=== PATIENT | male | born 1965 | race African-American/Black ===

== ENCOUNTER 2021-07-14 03:24 | Observation (INO) | payer OTHER ==
[2021-07-14 04:04] LABS: Basophils # (A) 0.1 k/uL (0-0.2); Basophils % (A) 1 %; Eosinophils # (A) 0.1 k/uL (0-0.7); Eosinophils % (A) 2 %; HCT 51.3 % (39.0-53.0); HGB 16.3 gm/dL (13.0-17.5); Lymphocytes # (A) 2.1 k/uL (1.0-4.8); Lymphocytes % (A) 38 %; MCH 27.5 pg (25.0-35.0); MCHC 31.8 g/dL (31.0-37.0); MCV 86.5 fL (80.0-100.0); Mean Platelet Volume 8.6; Monocytes # (A) 0.3 k/uL (0-1.0); Monocytes % (A) 5 %; Neutrophils % (A) 54 %; Platelet Count 206 k/uL (150-450); RBC 5.93 m/uL (4.30-5.90); WBC 5.5 k/uL (3.8-10.6)
[2021-07-14 04:19] LABS: Calcium 8.9 mg/dL (8.4-10.2); Total Bilirubin 0.7 mg/dL (0.2-1.3)
[2021-07-14 04:29] LABS: Creatine Kinase MB 0.7 ng/mL (0.0-2.4)
[2021-07-14 04:32] LABS: Partial Thromboplastin Time 25.3 sec (22.0-30.0); Prothrombin Time 10.7 sec (9.0-12.0)
[2021-07-14 04:38] LABS: Magnesium 2.2 mg/dL (1.6-2.3); Troponin I 0.017 ng/mL (0.000-0.034)
[2021-07-14 04:39] LABS: Albumin 3.8 g/dL (3.5-5.0); Total Protein 6.2 g/dL (6.3-8.2)
[2021-07-14] MEDS ORDERED: SODIUM CHLORIDE 0.9% 500 ML 500 ML IV ONE (06:47)
[2021-07-14] MEDS ORDERED: PANTOPRAZOLE 40 MG/10 ML VIAL IVP STA (06:47)
--- NOTE | 2021-07-14 06:52 | ED ---
General Adult HPI - General Chief complaint: Chest Pain Stated complaint: Chest Pain Time Seen by Provider: 07/14/21 06:45 Source: patient, EMS, RN notes reviewed, old records reviewed Mode of arrival: EMS Limitations: no limitations - History of Present Illness Initial comments: This is a 56-year-old well-appearing male that presents with complaints of chest pain which resolved prior to arrival after aspirin was given by [facility] staff. Patient now complaining of epigastric pain and chronic low back pain. Patient states the epigastric pain feels similar to when he had a bleeding ulcer 30 years ago. Patient is a daily smoker with a history of crack cocaine use. Last used Sunday. -: days(s) (1) Location: chest, back, abdomen Severity scale (1-10): 8 Quality: constant Consistency: constant Associated Symptoms: chest pain, other (back pain, epigastric pain) - Related Data Home Medications Medication Instructions Recorded Confirmed Acetaminophen Tab [Tylenol] 650 mg PO TID 07/14/21 07/14/21 Aspirin EC [Ecotrin] 325 mg PO DAILY 07/14/21 07/14/21 Calc/Magnes/Zinc/Vitamin D 1 tab PO TID 07/14/21 07/14/21 Chlorpheniramine Maleate 4 mg PO Q4H PRN 07/14/21 07/14/21 [Chlor-Trimeton] Loperamide HCl [Imodium A-D] 2 mg PO DIRECTED PRN 07/14/21 07/14/21 Mag Hydrox/Aluminum Hyd/Simeth 30 ml PO Q4H PRN 07/14/21 07/14/21 [Mylanta Maximum Strength Liq] Multivitamins, Thera [Multivitamin 1 tab PO DAILY PRN 07/14/21 07/14/21 (formulary)] Thiamine [Vitamin B-1] 100 mg PO DAILY PRN 07/14/21 07/14/21 guaiFENesin [guaiFENesin Oral 10 mg PO Q4H 07/14/21 07/14/21 Solution] ondansetron HCL [Zofran] 8 mg PO Q6HR PRN 07/14/21 07/14/21 traZODone HCL [Desyrel] 50 - 150 mg PO HS 07/14/21 07/14/21 Allergies Allergy/AdvReac Type Severity Reaction Status Date / Time ibuprofen [From Motrin] Allergy Abdominal Verified 07/14/21 08:23 Pain Review of Systems ROS Statement: Those systems with pertinent positive or pertinent negative responses have been documented in the HPI. ROS Other: All systems not noted in ROS Statement are negative. Past Medical History Additional Past Medical History / Comment(s): back pain History of Any Multi-Drug Resistant Organisms: None Reported Additional Past Surgical History / Comment(s): "ulcer surgery" Past Psychological History: No Psychological Hx Reported Smoking Status: Current some day smoker Past Alcohol Use History: Occasional Past Drug Use History: Cocaine General Exam Limitations: no limitations General appearance: alert, in no apparent distress Head exam: Present: atraumatic Eye exam: Present: normal appearance. Absent: scleral icterus, conjunctival injection Neck exam: Present: normal inspection, full ROM. Absent: tenderness, me ningismus Respiratory exam: Present: normal lung sounds bilaterally. Absent: respiratory distress, wheezes, rales, rhonchi, stridor, chest wall tenderness, accessory muscle use, decreased breath sounds Cardiovascular Exam: Present: regular rate, normal heart sounds GI/Abdominal exam: Present: soft, tenderness (epigastric), normal bowel sounds. Absent: distended, guarding, rebound, rigid, pulsatile mass Extremities exam: Present: normal inspection, full ROM, normal capillary refill. Absent: tenderness, pedal edema, joint swelling Back exam: Present: normal inspection, full ROM, paraspinal tenderness (lumbar spine) Neurological exam: Present: alert, oriented X3, normal gait Psychiatric exam: Present: normal affect, normal mood Skin exam: Present: warm, dry, intact, normal color. Absent: cyanosis, diaphoretic Course Vital Signs 07/14/21 07/14/21 07/14/21 03:34 07:05 07:44 Temperature 98.7 F Pulse Rate 75 62 Pulse Rate [ 66 Sitting Manager [place]] Respiratory 24 16 Rate Blood Pressure 128/84 122/82 O2 Sat by Pulse 99 99 Oximetry 07/14/21 11:00 Temperature Pulse Rate 63 Pulse Rate [ Sitting Manager [place]] Respiratory 16 Rate Blood Pressure 122/80 O2 Sat by Pulse 96 Oximetry EKG Findings - EKG Results: EKG: sinus rhythm (Ventricular rate of 78, WV interval 0.118, QRS 0.86, QTC 0.388) Medical Decision Making - Medical Decision Making 56-year-old well-appearing male presents with chest pain that resolved prior to arrival after aspirin was given by [facility] staff. Patient is a daily smoker with a history of crack cocaine use, last use Sunday. Chest x-ray shows no acute cardiopulmonary process. There is no evidence of leukocytosis. Hematocrit are stable. Troponin 2 negative at 0.017 and less than 0.012. Patient states that pain was resolved prior to coming to the emergency room. He does have history of gastric ulcers and is complaining of epigastric pain. He will be admitted for atypical chest pain. Case discussed with Dr. Mary. - Lab Data Result diagrams: 07/14/21 03:33 07/14/21 03:33 Lab Results 07/14/21 07/14/21 07/14/21 Range/Units 03:33 03:33 03:33 WBC 5.5 (3.8-10.6) k/uL RBC 5.93 H (4.30-5.90) m/uL Hgb 16.3 (13.0-17.5) gm/dL Hct 51.3 (39.0-53.0) % MCV 86.5 (80.0-100.0) fL MCH 27.5 (25.0-35.0) pg MCHC 31.8 (31.0-37.0) g/dL RDW 13.0 (11.5-15.5) % Plt Count 206 (150-450) k/uL MPV 8.6 Neutrophils % 54 % Lymphocytes % 38 % Monocytes % 5 % Eosinophils % 2 % Basophils % 1 % Neutrophils # 3.0 (1.3-7.7) k/uL Lymphocytes # 2.1 (1.0-4.8) k/uL Monocytes # 0.3 (0-1.0) k/uL Eosinophils # 0.1 (0-0.7) k/uL Basophils # 0.1 (0-0.2) k/uL PT 10.7 (9.0-12.0) sec INR 1.0 (<1.2) APTT 25.3 (22.0-30.0) sec Sodium 136 L (137-145) mmol/L Potassium 5.0 (3.5-5.1) mmol/L Chloride 106 (98-107) mmol/L Carbon Dioxide 23 (22-30) mmol/L Anion Gap 7 mmol/L BUN 14 (9-20) mg/dL Creatinine 1.08 (0.66-1.25) mg/dL Est GFR (CKD-EPI)AfAm 87 (>60 ml/min/1.73 sqM) Est GFR (CKD-EPI)NonAf 75 (>60 ml/min/1.73 sqM) Glucose 84 (74-99) mg/dL Calcium 8.9 (8.4-10.2) mg/dL Magnesium 2.2 (1.6-2.3) mg/dL Total Bilirubin 0.7 (0.2-1.3) mg/dL AST 29 (17-59) U/L ALT 14 (4-49) U/L Alkaline Phosphatase 62 (38-126) U/L Total Creatine Kinase (55-170) U/L CK-MB (CK-2) (0.0-2.4) ng/mL CK-MB (CK-2) Rel Index Troponin I (0.000-0.034) ng/mL Total Protein 6.2 L (6.3-8.2) g/dL Albumin 3.8 (3.5-5.0) g/dL 07/14/21 07/14/21 Range/Units 03:33 06:43 WBC (3.8-10.6) k/uL RBC (4.30-5.90) m/uL Hgb (13.0-17.5) gm/dL Hct (39.0-53.0) % MCV (80.0-100.0) fL MCH (25.0-35.0) pg MCHC (31.0-37.0) g/dL RDW (11.5-15.5) % Plt Count (150-450) k/uL MPV Neutrophils % % Lymphocytes % % Monocytes % % Eosinophils % % Basophils % % Neutrophils # (1.3-7.7) k/uL Lymphocytes # (1.0-4.8) k/uL Monocytes # (0-1.0) k/uL Eosinophils # (0-0.7) k/uL Basophils # (0-0.2) k/uL PT (9.0-12.0) sec INR (<1.2) APTT (22.0-30.0) sec Sodium (137-145) mmol/L Potassium (3.5-5.1) mmol/L Chloride (98-107) mmol/L Carbon Dioxide (22-30) mmol/L Anion Gap mmol/L BUN (9-20) mg/dL Creatinine (0.66-1.25) mg/dL Est GFR (CKD-EPI)AfAm (>60 ml/min/1.73 sqM) Est GFR (CKD-EPI)NonAf (>60 ml/min/1.73 sqM) Glucose (74-99) mg/dL Calcium (8.4-10.2) mg/dL Magnesium (1.6-2.3) mg/dL Total Bilirubin (0.2-1.3) mg/dL AST (17-59) U/L ALT (4-49) U/L Alkaline Phosphatase (38-126) U/L Total Creatine Kinase 84 (55-170) U/L CK-MB (CK-2) 0.7 (0.0-2.4) ng/mL CK-MB (CK-2) Rel Index 0.8 Troponin I 0.017 <0.012 (0.000-0.034) ng/mL Total Protein (6.3-8.2) g/dL Albumin (3.5-5.0) g/dL Disposition Clinical Impression: Atypical chest pain Disposition: ADMITTED IP TO THIS [facility] Decision Date: 07/14/21 Decision Time: 07:55
--- NOTE | 2021-07-14 07:14 | XR ---
EXAMINATION TYPE: XR chest 2V DATE OF EXAM: 07/14/2021 COMPARISON: NONE HISTORY: Pain TECHNIQUE: Frontal and lateral views of the chest are obtained. FINDINGS: There is no focal air space opacity, pleural effusion, or pneumothorax seen. The cardiac silhouette size is within normal limits. There are overlying leads. The osseous structures are intac t. IMPRESSION: No acute cardiopulmonary process.
[2021-07-14] MEDS ORDERED: NALOXONE 0.4 MG/ML 1 ML VIAL IV PRN (07:57)
[2021-07-14] MEDS ORDERED: ACETAMINOPHEN TAB 325 MG TAB PO PRN (07:57)
--- NOTE | 2021-07-14 13:43 | ECHOF ---
Referral Reason:chest pain MEASUREMENTS -------- HEIGHT: 182.9 cm WEIGHT: 76.7 kg BP: RVIDd: 2.8 cm (< 3.3) IVSd: 1.1 cm (0.6 - 1.1) LVIDd: 4.0 cm (3.9 - 5.3) LVPWd: 1.5 cm (0.6 - 1.1) IVSs: 1.2 cm LVIDs: 3.6 cm LVPWs: 1.4 cm LA Diam: 3.4 cm (2.7 - 3.8) LAESV Index (A-L): 34.50 ml/m Ao Diam: 3.3 cm (2.0 - 3.7) AV Cusp: 1.9 cm (1.5 - 2.6) LA Diam: 3.6 cm (2.7 - 3.8) MV EXCURSION: 19.436 mm (> 18.000) MV EF SLOPE: 95 mm/s (70 - 150) EPSS: 0.7 cm MV E Kevin: 0.53 m/s MV DecT: 160 ms MV A Kevin: 0.59 m/s MV E/A Ratio: 0.91 RAP: 5.00 mmHg RVSP: 22.01 mmHg FINDINGS -------- Sinus rhythm. This was a technically adequate study. The left ventricular size is normal. There is mild concentric left ventricular hypertrophy. Overa ll left ventricular systolic function is normal with, an EF between 55 - 60 %. The diastolic fillin g pattern is normal for the age of the patient 7.42. The right ventricle is normal in size. LA is moderately dilated 34-39 ml/m2 The right atrial size is normal. The aortic valve is trileaflet and appears structurally normal. There is mild aortic regurgitation. The mitral valve is normal. Mild mitral regurgitation is present. The tricuspid valve appears structurally normal. Mild tricuspid regurgitation present. Right vent ricular systolic pressure is normal at < 35 mmHg. There is no pulmonic regurgitation present. The aortic root size is normal. There is no pericardial effusion. CONCLUSIONS -------- 1. Overall left ventricular systolic function is normal with, an EF between 55 - 60 %. 2. LA is moderately dilated 34-39 ml/m2 3. There is mild aortic regurgitation. 4. Mild mitral regurgitation is present. 5. Mild tricuspid regurgitation present. 6. There is no pericardial effusion. HYDRAMATIC SPECIALIST: Angela Shelton RDCS
--- NOTE | 2021-07-14 13:48 | P.CRDCN ---
History of Present Illness Consult date: 07/14/21 History of present illness: HISTORY OF PRESENT ILLNESS: This is a 56-year-old male with a past medical history significant for nicotine dependence and crack cocaine use. Patient is currently at [facility] for rehab. Patient does not follow with a vigoureux printer. We have been asked to see the patient in consultation for chest pain. Patient examined at the bedside. Patient states he began having chest pain yesterday when he was sleeping. He also reports having shortness of breath with exertion. He denied any radiation of the pain. He denies having any previous cardiac testing in the past. He does report that his sister from a heart attack. * EKG reveals sinus mechanism with no signs of acute ischemia * Chest xray negative for acute process * Laboratory data: WBC 5.5. Hemoglobin 16.3. Platelet count 206. Sodium 136. Potassium 5.0. B UN 14. Creatinine 1.08. Magnesium 2.2. Troponin negative 2. * Current home cardiac medications include aspirin 325 mg daily REVIEW OF SYSTEMS: At the time of my exam: CONSTITUTIONAL: Denies fever or chills. HEENT: Denies blurred vision, vision changes, or eye pain. Denies hemoptysis CARDIOVASCULAR: Denies chest pain. Denies orthopnea. Denies PND. Denies palpitations RESPIRATORY: Denies shortness of breath. GASTROINTESTINAL: Denies abdominal pain. Denies nausea or vomiting. HEMATOLOGIC: Denies bleeding disorders. GENITOURINARY: Denies any blood in urine. SKIN: Denies pruitis. Denies rash. PHYSICAL EXAM: VITAL SIGNS: Reviewed. GENERAL: Well-developed in no acute distress. HEENT: Head is normocephalic. Pupils are equal, round. Sclerae anicteric. Mucous membranes of the mouth are moist. Neck supple. No JVD or thyromegaly LUNGS: Respirations even and unlabored. Lungs essentially clear to auscultation bilaterally. HEART: Regular rate and rhythm. S1 and S2 heard. ABDOMEN: Soft. Nondistended. Nontender. EXTREMITIES: Normal range of motion. No clubbing or cyanosis. Peripheral pulses intact. No lower extremity edema NEUROLOGIC: Awake and alert. Oriented x 3. ASSESSMENT: Chest pain Nicotine dependence History of crack cocaine use, currently in rehab Family history of premature coronary artery disease History of gastric ulcers PLAN: Acute coronary event has been ruled out Obtain 2D echo to assess cardiac structure and function Nothing by mouth at midnight Patient will undergo stress echocardiogram tomorrow to assess for ischemia Abstinence from drug use current Smoking cessation recommended Further recommendations pending patient's course Nurse practitioner note has been reviewed by physician. Signing provider agrees with the documented findings, assessment, and plan of care. Past Medical History Additional Past Medical History / Comment(s): back pain History of Any Multi-Drug Resistant Organisms: None Reported Additional Past Surgical History / Comment(s): "ulcer surgery" Past Psychological History: No Psychological Hx Reported Smoking Status: Current some day smoker Past Alcohol Use History: Occasional Past Drug Use History: Cocaine Medications and Allergies Home Medications Medication Instructions Recorded Confirmed Type Acetaminophen Tab [Tylenol] 650 mg PO TID 07/14/21 07/14/21 History Aspirin EC [Ecotrin] 325 mg PO DAILY 07/14/21 07/14/21 History Calc/Magnes/Zinc/Vitamin D 1 tab PO TID 07/14/21 07/14/21 History Chlorpheniramine Maleate 4 mg PO Q4H PRN 07/14/21 07/14/21 History [Chlor-Trimeton] Loperamide HCl [Imodium A-D] 2 mg PO DIRECTED PRN 07/14/21 07/14/21 History Mag Hydrox/Aluminum Hyd/Simeth 30 ml PO Q4H PRN 07/14/21 07/14/21 History [Mylanta Maximum Strength Liq] Multivitamins, Thera [Multivitamin 1 tab PO DAILY PRN 07/14/21 07/14/21 History (formulary)] Thiamine [Vitamin B-1] 100 mg PO DAILY PRN 07/14/21 07/14/21 History guaiFENesin [guaiFENesin Oral 10 mg PO Q4H 07/14/21 07/14/21 History Solution] ondansetron HCL [Zofran] 8 mg PO Q6HR PRN 07/14/21 07/14/21 History traZODone HCL [Desyrel] 50 - 150 mg PO HS 07/14/21 07/14/21 History Allergies Allergy/AdvReac Type Severity Reaction Status Date / Time ibuprofen [From Motrin] Allergy Abdominal Verified 07/14/21 08:23 Pain Physical Exam Vitals: Vital Signs Temp Pulse Pulse Resp BP Pulse Ox 07/14/21 07:44 62 16 122/82 99 07/14/21 07:05 66 07/14/21 03:34 98.7 F 75 24 128/84 99 Intake and Output 07/13/21 07/14/21 07/14/21 22:59 06:59 14:59 Other: Weight 85.729 kg Results 07/14/21 03:33 07/14/21 03:33 Cardiac Enzymes 07/14/21 07/14/21 07/14/21 Range/Units 03:33 03:33 06:43 AST 29 (17-59) U/L CK-MB (CK-2) 0.7 (0.0-2.4) ng/mL Troponin I 0.017 <0.012 (0.000-0.034) ng/mL Coagulation 07/14/21 Range/Units 03:33 PT 10.7 (9.0-12.0) sec APTT 25.3 (22.0-30.0) sec CBC 07/14/21 Range/Units 03:33 WBC 5.5 (3.8-10.6) k/uL RBC 5.93 H (4.30-5.90) m/uL Hgb 16.3 (13.0-17.5) gm/dL Hct 51.3 (39.0-53.0) % Plt Count 206 (150-450) k/uL Comprehensive Metabolic Panel 07/14/21 Range/Units 03:33 Sodium 136 L (137-145) mmol/L Potassium 5.0 (3.5-5.1) mmol/L Chloride 106 (98-107) mmol/L Carbon Dioxide 23 (22-30) mmol/L BUN 14 (9-20) mg/dL Creatinine 1.08 (0.66-1.25) mg/dL Glucose 84 (74-99) mg/dL Calcium 8.9 (8.4-10.2) mg/dL AST 29 (17-59) U/L ALT 14 (4-49) U/L Alkaline Phosphatase 62 (38-126) U/L Total Protein 6.2 L (6.3-8.2) g/dL Albumin 3.8 (3.5-5.0) g/dL Current Medications Generic Name Dose Route Start Last Admin Trade Name Freq PRN Reason Stop Dose Admin Acetaminophen 650 mg 07/14/21 07:57 Acetaminophen Tab 325 Mg Tab PO Q6HR PRN Mild Pain or Fever > 100.5 Naloxone HCl 0.2 mg 07/14/21 07:57 Naloxone 0.4 Mg/Ml 1 Ml Vial IV Q2M PRN Opioid Reversal Intake and Output 07/13/21 07/14/21 07/14/21 22:59 06:59 14:59 Other: Weight 85.729 kg 07/14/21 03:33 07/14/21 03:33
--- NOTE | 2021-07-14 14:53 | P.HPIM ---
History of Present Illness H&P Date: 07/14/21 History of Presenting Illness: Patient is a 56-year-old male with a past medical history of crack cocaine abuse and nicotine dependence. He presented to the emergency department with reports of chest pain. Patient presented to the emergency department with a chief complaint of chest pain. He states he was awoken from sleep with a sharp pain to left anterior chest radiating into his back came on suddenly lasting about 30 minutes prior to resolving after being given aspirin by EMS. Patient denies having any headache, lightheadedness, dizziness, palpitations, shortness of breath, nausea, diaphoresis, or experiencing any numbness/tingling/weakness in his extremities. States last use of crack cocaine being Sunday and currently residing at [facility]. In the emergency department patient underwent full evaluation. EKG showing normal sinus rhythm at [address] elevation in aVL and no T-wave abnormalities. Vital signs were unremarkable. Chest x-ray was negative for acute cardiopulmonary process. Labs completed with CBC and CMP unremarkable. Initial troponin 0.017 with repeat troponin of less than 0.012. Patient admitted under our services with consultation to cardiology. Review of systems: Pertinent positives and negatives as discussed in HPI, a complete review of systems was performed and all other systems are negative. Physical exam: Vital signs reviewed and stable. General: Nontoxic, no distress and appears stated age. Derm: Skin warm and dry, normal coloration for ethnicity. Head: Atraumatic, normocephalic and symmetric. Eyes: EOMs intact, no lid lag, and anicteric sclera Mouth: no lip lesions, mucus membranes moist Cardiovascular: regular rate and rhythm with normal S1S2, no murmur, positive posterior tibial pulses bilaterally, and cap refill < 2 seconds. Lungs: Respirations even, regular, and unlabored on room air. Lungs CTA bilaterally, no rhonchi, no rales, no wheezing, and no accessory muscle usage. Abdominal: soft, nontender to palpation, no guarding, no appreciable organomegaly Ext: ROM intact. No gross muscle atrophy, no edema, no contractures Neuro: Speech clear, face symmetrical and CN II-XII grossly intact with no noted focal neuro deficits Psych: Alert and oriented to person, place, time, and situation. Appropriate and pleasant affect. Assessment and Plan of Care: Chest pain, rule out acute coronary event -Cardiology consult, appreciate further recommendations -Telemetry monitoring -Trend troponins -Cardiac diet, NPO at midnight -Aspirin, atorvastatin, and metoprolol -Lipid profile with a.m. labs. -Echocardiogram Crack cocaine use/abuse -Patient encouraged to return to [facility] with continued encouragement of cessation of all drug use. The patient is admitted with an anticipated less than 2 midnight stay for evaluation of chest pain CODE STATUS: Full code DVT prophylaxis: Heparin Discussed with: Patient and RN Anticipated discharge date: 1-[address]: Home, return to [facility] A total of 40 minutes was spent on the care of this complex patient more than 50% of the time was spent in counseling and care coordination. Past Medical History Additional Past Medical History / Comment(s): back pain History of Any Multi-Drug Resistant Organisms: None Reported Additional Past Surgical History / Comment(s): "ulcer surgery" Past Psychological History: No Psychological Hx Reported Smoking Status: Current some day smoker Past Alcohol Use History: Occasional Past Drug Use History: Cocaine Medications and Allergies Home Medications Medication Instructions Recorded Confirmed Type Acetaminophen Tab [Tylenol] 650 mg PO TID 07/14/21 07/14/21 History Aspirin EC [Ecotrin] 325 mg PO DAILY 07/14/21 07/14/21 History Calc/Magnes/Zinc/Vitamin D 1 tab PO TID 07/14/21 07/14/21 History Chlorpheniramine Maleate 4 mg PO Q4H PRN 07/14/21 07/14/21 History [Chlor-Trimeton] Loperamide HCl [Imodium A-D] 2 mg PO DIRECTED PRN 07/14/21 07/14/21 History Mag Hydrox/Aluminum Hyd/Simeth 30 ml PO Q4H PRN 07/14/21 07/14/21 History [Mylanta Maximum Strength Liq] Multivitamins, Thera [Multivitamin 1 tab PO DAILY PRN 07/14/21 07/14/21 History (formulary)] Thiamine [Vitamin B-1] 100 mg PO DAILY PRN 07/14/21 07/14/21 History guaiFENesin [guaiFENesin Oral 10 mg PO Q4H 07/14/21 07/14/21 History Solution] ondansetron HCL [Zofran] 8 mg PO Q6HR PRN 07/14/21 07/14/21 History traZODone HCL [Desyrel] 50 - 150 mg PO HS 07/14/21 07/14/21 History Allergies Allergy/AdvReac Type Severity Reaction Status Date / Time ibuprofen [From Motrin] Allergy Abdominal Verified 07/14/21 08:23 Pain Physical Exam Vitals: Vital Signs Temp Pulse Pulse Resp BP Pulse Ox 07/14/21 07:44 62 16 122/82 99 07/14/21 07:05 66 07/14/21 03:34 98.7 F 75 24 128/84 99 Intake and Output 07/13/21 07/14/21 07/14/21 22:59 06:59 14:59 Other: Weight 85.729 kg Results CBC & Chem 7: 07/14/21 03:33 07/14/21 03:33 Labs: Abnormal Lab Results - Last 24 Hours (Table) 07/14/21 07/14/21 Range/Units 03:33 03:33 RBC 5.93 H (4.30-5.90) m/uL Sodium 136 L (137-145) mmol/L Total Protein 6.2 L (6.3-8.2) g/dL
[2021-07-14] MEDS: HEPARIN SODIUM,PORCINE/PF 5,000 UNIT/0.5 ML SYRINGE SQ SCH ×2 (15:04→21:40)
[2021-07-14] MEDS: THIAMINE 100 MG TAB PO SCH (15:04)
[2021-07-14 17:35] LABS: Glucose,Whole Blood 123 mg/dL (75-99)
[2021-07-14] MEDS ORDERED: ATORVASTATIN 40 MG TAB PO SCH (21:00)
[2021-07-14] MEDS ORDERED: traZODone HCL 50 MG TAB PO SCH (21:00)
[2021-07-15 07:28] VITALS: TEMP 97.6
[2021-07-15] MEDS ORDERED: ASPIRIN 325 MG TAB PO SCH (09:00)
[2021-07-15] MEDS: THIAMINE 100 MG TAB PO SCH (09:18)
[2021-07-15] MEDS: HEPARIN SODIUM,PORCINE/PF 5,000 UNIT/0.5 ML SYRINGE SQ SCH ×2 (09:18→15:59)
[2021-07-15 09:43] LABS: HCT 49.2 % (39.6-50.0); MCH 27.7 pg (27.0-32.0); MCHC 32.5 g/dL (32.0-37.0); MCV 85.1 fL (80.0-97.0); Mean Platelet Volume 10.6 fL (9.5-12.2); NRBC Per 100 WBC 0 /100 WBCS (0.0-0.0); Platelet Count 219 X 10*3/uL (140-440); RBC 5.78 X 10*6/uL (4.40-5.60); RDW 12.8 % (11.5-14.5); WBC 4.16 X 10*3/uL (4.50-10.00)
[2021-07-15 09:58] LABS: ALT 13 U/L (10-49); AST 13 U/L (14-35); African American GFR (CKD) 62.7 (60.0-200.0); Albumin 3.8 g/dL (3.8-4.9); Albumin/Globulin Ratio 2.39 (1.60-3.17); Alkaline Phosphatase 72 U/L (41-126); BUN/Creat Ratio 7.68 Ratio (12.00-20.00); Blood Urea Nitrogen 10.9 mg/dL (9.0-27.0); Carbon Dioxide 26.4 mmol/L (20.0-27.5); Chloride 107 mmol/L (96-109); Chol/HDL Ratio 2.79 Ratio; Globulin 1.6 g/dL (1.6-3.3); Glucose 96 mg/dL (70-110); LDL Cholesterol,Calculated 63.1 mg/dL (0.0-131.0); Non-African American GFR(CKD) 54.1 (60.0-200.0); Potassium 5.4 mmol/L (3.5-5.5); Sodium 141 mmol/L (135-145); Total Protein 5.4 g/dL (6.2-8.2); VLDL Calculation 16.38 mg/dL (5.00-40.00)
--- NOTE | 2021-07-15 09:59 | P.PN ---
Subjective Progress Note Date: 07/15/21 HISTORY OF PRESENT ILLNESS: This is a 56-year-old male with a past medical history significant for nicotine dependence and crack cocaine use. Patient is currently at [facility] for rehab. Patient does not follow with a weld engineer. We have been asked to see the patient in consultation for chest pain. Patient examined at the bedside. Patient states he began having chest pain yesterday when he was sleeping. He also reports having shortness of breath with exertion. He denied any radiation of the pain. He denies having any previous cardiac testing in the past. He does report that his sister from a heart attack. * EKG reveals sinus mechanism with no signs of acute ischemia * Chest xray negative for acute process * Laboratory data: WBC 5.5. Hemoglobin 16.3. Platelet count 206. Sodium 136. Potassium 5.0. B UN 14. Creatinine 1.08. Magnesium 2.2. Troponin negative 2. * Current home cardiac medications include aspirin 325 mg daily 07/15/2021 Patient examined this morning at the bedside. Patient denies chest pain or pressure. He denies shortness of breath. Echocardiogram completed revealing ejection fraction 55-60%, mild AR, mild MR, mild TR. PHYSICAL EXAM: VITAL SIGNS: Reviewed. GENERAL: Well-developed in no acute distress. HEENT: Head is normocephalic. Pupils are equal, round. Sclerae anicteric. Mucous membranes of the mouth are moist. Neck supple. No JVD or thyromegaly LUNGS: Respirations even and unlabored. Lungs essentially clear to auscultation bilaterally. HEART: Regular rate and rhythm. S1 and S2 heard. ABDOMEN: Soft. Nondistended. Nontender. EXTREMITIES: Normal range of motion. No clubbing or cyanosis. Peripheral pulses intact. No lower extremity edema NEUROLOGIC: Awake and alert. Oriented x 3. ASSESSMENT: Chest pain Nicotine dependence History of crack cocaine use, currently in rehab Family history of premature coronary artery disease History of gastric ulcers PLAN: Continue current medications Abstinence from drug use recommended Smoking cessation recommended Patient will undergo stress echocardiogram today to assess for ischemia. If negative, the patient may be discharged home today from a cardiac standpoint Nurse practitioner note has been reviewed by physician. Signing provider agrees with the documented findings, assessment, and plan of care. Objective - Vital Signs Vital signs: Vital Signs Temp 97.6 F 07/15/21 07:00 Pulse 69 07/15/21 07:00 Resp 16 07/15/21 07:00 BP 114/80 07/15/21 07:00 Pulse Ox 100 07/15/21 07:00 Intake & Output 07/14/21 07/15/21 07/15/21 18:59 06:59 18:59 Intake Total 8 Balance 8 Weight 85.729 kg Intake: Oral 8 Other: Voiding Method Toilet # Voids 2 # Bowel Movements 0 - Labs CBC & Chem 7: 07/15/21 05:54 07/14/21 03:33 Labs: Abnormal Lab Results - Last 24 Hours (Table) 07/14/21 07/15/21 Range/Units 17:33 05:54 WBC 4.16 L (4.50-10.00) X 10*3/uL RBC 5.78 H (4.40-5.60) X 10*6/uL POC Glucose (mg/dL) 123 H (75-99) mg/dL
--- NOTE | 2021-07-15 13:50 | ECHOS ---
STRESS ECHOCARDIOGRAM INDICATIONS: Atypical chest pain BASELINE HEART RATE: 72 BASELINE BLOOD PRESSURE: 83/57 MAXIMUM HEART RATE: 143 MAXIMUM BLOOD PRESSURE: 154/78 85% MPHR: 138 100% MPHR: 162 METS: 10.3 MAXIMUM STAGE REACHED: 3 TOTAL EXERCISE TIME: 9:00 CLINICAL INFORMATION: Baseline rhythm is sinus mechanism, rate of 72, borderline left axis deviation. Baseline blood pressure 83/57 mmHg. Patient exercised on Cordell protocol for 9 minutes, reaching a peak rate of 143 beats per minute, which is 88% of maximum predicted heart rate. Peak blood pressure 154/78 mmHg. Test was terminated secondary to fatigue. There was no chest pain. Electrocardiograph monitoring revealed no evidence of diagnostic ischemic ST deviation. FINDINGS: Baseline echocardiogram revealed normal wall thickness and motion. At peak exercise there was normal wall motion augmentation with no hypokinesis or dyskinesis. CONCLUSION: 1. Good exercise tolerance with normal electrocardiograph response to exercise. 2. Normal stress echocardiogram with no evidence of stress-induced ischemia. MMODL / IJN: [id number] /
[2021-07-15 15:00] VITALS: BP 104/69; PULSE 75; RESP 18
--- NOTE | 2021-07-15 15:22 | P.DS ---
Providers Date of admission: 07/14/21 09:28 Expected date of discharge: 07/15/21 Attending physician: Andrew Winston MD Primary care physician: Physician Nonstaff Hospital Course: Discharge Diagnosis: Chest pain, acute coronary event ruled out Crack cocaine use/abuse, recommend continued total cessation and patient is encouraged to return to [place] for rehab. Hospital Course: Patient is a 56-year-old male with a past medical history of crack cocaine abuse and nicotine dependence. He presented to the emergency department with reports of chest pain. Patient presented to the emergency department with a chief complaint of chest pain. He states he was awoken from sleep with a sharp pain to left anterior chest radiating into his back came on suddenly lasting about 30 minutes prior to resolving after being given aspirin by EMS. Patient denies having any headache, lightheadedness, dizziness, palpitations, shortness of breath, nausea, diaphoresis, or experiencing any numbness/tingling/weakness in his extremities. States last use of crack cocaine being Sunday and currently residing at [place]. In the emergency department patient underwent full evaluation. EKG showing normal sinus rhythm at [address] elevation in aVL and no T-wave abnormalities. Vital signs were unremarkable. Chest x-ray was negative for acute cardiopulmonary process. Labs completed with CBC and CMP unremarkable. Initial troponin 0.017 with repeat troponin of less than 0.012. Patient admitted under our services with consultation to cardiology. patient was monitored overnight. Troponins trended 0.017 and less than 0.012. Lipid profile unremarkable. Patient underwent a stress echocardiogram which revealed good exercise tolerance with normal electrocardiographic response to exercise and normal stress echocardiogram with no evidence of stressed induced ischemia. Cardiology recommending outpatient follow-up and in agreement with recom mendations of total cessation of crack cocaine use/abuse. Patient is medically stable for discharge. Vital signs unremarkable. Patient medically stable and encouraged to return to [place] for drug/alcohol rehabilitation. Physical exam: Vital signs reviewed and stable. General: Nontoxic, no distress and appears stated age. Derm: Skin warm and dry, normal coloration for ethnicity. Head: Atraumatic, normocephalic and symmetric. Eyes: EOMs intact, no lid lag, and anicteric sclera Mouth: no lip lesions, mucus membranes moist Cardiovascular: regular rate and rhythm with normal S1S2, no murmur, positive posterior tibial pulses bilaterally, and cap refill < 2 seconds. Lungs: Respirations even, regular, and unlabored on room air. Lungs CTA bilaterally, no rhonchi, no rales, no wheezing, and no accessory muscle usage. Abdominal: soft, nontender to palpation, no guarding, no appreciable organomegaly Ext: ROM intact. No gross muscle atrophy, no edema, no contractures Neuro: Speech clear, face symmetrical and CN II-XII grossly intact with no noted focal neuro deficits Psych: Alert and oriented to person, place, time, and situation. Appropriate and pleasant affect. A total of 38 minutes of time were spent preparing this complex discharge summary. Patient Condition at Discharge: Stable Plan - Discharge Summary Discharge Rx Participant: No New Discharge Prescriptions: Continue Thiamine [Vitamin B-1] 100 mg PO DAILY PRN PRN Reason: PER [facility] Multivitamins, Thera [Multivitamin (formulary)] 1 tab PO DAILY PRN PRN Reason: PER [facility] Calc/Magnes/Zinc/Vitamin D 1 tab PO TID Loperamide HCl [Imodium A-D] 2 mg PO DIRECTED PRN PRN Reason: Loose Stool Chlorpheniramine Maleate [Chlor-Trimeton] 4 mg PO Q4H PRN PRN Reason: Allergy Symptoms ondansetron HCL [Zofran] 8 mg PO Q6HR PRN PRN Reason: Nausea Acetaminophen Tab [Tylenol] 650 mg PO TID traZODone HCL [Desyrel] 50 - 150 mg PO HS Mag Hydrox/Aluminum Hyd/Simeth [Mylanta Maximum Strength Liq] 30 ml PO Q4H PRN PRN Reason: Gi Upset guaiFENesin [guaiFENesin Oral Solution] 10 mg PO Q4H Aspirin EC [Ecotrin] 325 mg PO DAILY Discharge Medication List Acetaminophen Tab [Tylenol] 650 mg PO TID 07/14/21 [History] Aspirin EC [Ecotrin] 325 mg PO DAILY 07/14/21 [History] Calc/Magnes/Zinc/Vitamin D 1 tab PO TID 07/14/21 [History] Chlorpheniramine Maleate [Chlor-Trimeton] 4 mg PO Q4H PRN 07/14/21 [History] Loperamide HCl [Imodium A-D] 2 mg PO DIRECTED PRN 07/14/21 [History] Mag Hydrox/Aluminum Hyd/Simeth [Mylanta Maximum Strength Liq] 30 ml PO Q4H PRN 07/14/21 [History] Multivitamins, Thera [Multivitamin (formulary)] 1 tab PO DAILY PRN 07/14/21 [History] Thiamine [Vitamin B-1] 100 mg PO DAILY PRN 07/14/21 [History] guaiFENesin [guaiFENesin Oral Solution] 10 mg PO Q4H 07/14/21 [History] ondansetron HCL [Zofran] 8 mg PO Q6HR PRN 07/14/21 [History] traZODone HCL [Desyrel] 50 - 150 mg PO HS 07/14/21 [History] Follow up Appointment(s)/Referral(s): Daily Paz MD [STAFF PHYSICIAN] - 1 Week Rafael Prasad MD [REFERRING] - 1-2 Days Activity/Diet/Wound Care/Special Instructions: Activity: As tolerated. Take breaks as needed. Diet: Heart healthy and carb consistent diet. Avoid salts, or foods with hidden salts such as canned or boxed foods and frozen dinners. Extra salt makes your heart work harder and traps the fluid in your body for longer. Special Instructions: Take all of your medications as directed and remember to keep all of your doctor's appointments and follow-up as needed. Thank you for allowing us to participate in your care, it was truly a pleasure having you for our patient!!! It is important to stop use of crack cocaine as the risks of continued use can cause significant health morbidities and complications up to and including . Recommend returning to [place] for rehab. Discharge Disposition: HOME SELF-CARE
== END 2021-07-15 17:17 | disposition home or self-care (01) ==
LOC: EC 03:24 → 6NMEDSUR 09:28
PROVIDERS: ADMIT Internal Medicine; ATTEND Internal Medicine
DX: R07.89 Other chest pain (principal); R10.13 Epigastric pain; G89.29 Other chronic pain; M54.50 Low back pain, unspecified; F14.10 Cocaine abuse, uncomplicated; R06.02 Shortness of breath; F17.200 Nicotine dependence, unspecified, uncomplicated; Z79.82 Long term (current) use of aspirin; Z79.899 Other long term (current) drug therapy; Z88.6 Allergy status to analgesic agent; Z98.890 Other specified postprocedural states; Z87.11 Personal history of peptic ulcer disease; Z82.49 Family history of ischemic heart disease and other diseases of the circulatory system; Z71.51 Drug abuse counseling and surveillance of drug abuser; Z71.6 Tobacco abuse counseling
CPT/HCPCS: 96372 ×3; 96361; 96374; 99285; 36415; 93005; 93306; 93351; 80061; 80053 ×2; 82550; 82553; 83735; 84484; 85025; 85027; 85610; 85730; 71046; G0378 ×2; C9113; J1644 ×2

== ENCOUNTER 2022-11-24 11:14 | Observation (INO) | payer OTHER ==
--- NOTE | 2022-11-24 11:46 | ED ---
General Adult HPI - General Chief complaint: Chest Pain Stated complaint: Chest Pain Time Seen by Provider: 11/24/22 11:20 Source: patient, EMS, RN notes reviewed, old records reviewed Mode of arrival: EMS - History of Present Illness Initial comments: This is a 57-year-old male who presents emergency Department stating that he's had chest pain for 2 days. Patient states started on Sunday he stated he did crack cocaine that day. Patient states the pain starts in his chest and radiates to his back. Patient denies any fever chills or cough. Patient states occasionally he has had some nausea. Patient denies shortness of breath or difficulty breathing. Patient denies any diaphoretic episodes. Patient has nausea vomiting. Patient denies any abdominal pain currently. Patient denies any vomiting but states she does have diarrhea occasionally. Patient states he also does fentanyl and he needed to be given Narcan any other day are also believes he would've . - Related Data Home Medications Medication Instructions Recorded Confirmed Acetaminophen Tab [Tylenol] 650 mg PO TID 07/14/21 07/14/21 Aspirin EC [Ecotrin] 325 mg PO DAILY 07/14/21 07/14/21 Calc/Magnes/Zinc/Vitamin D 1 tab PO TID 07/14/21 07/14/21 Chlorpheniramine Maleate 4 mg PO Q4H PRN 07/14/21 07/14/21 [Chlor-Trimeton] Loperamide HCl [Imodium A-D] 2 mg PO DIRECTED PRN 07/14/21 07/14/21 Mag Hydrox/Aluminum Hyd/Simeth 30 ml PO Q4H PRN 07/14/21 07/14/21 [Mylanta Maximum Strength Liq] Multivitamins, Thera [Multivitamin 1 tab PO DAILY PRN 07/14/21 07/14/21 (formulary)] Thiamine [Vitamin B-1] 100 mg PO DAILY PRN 07/14/21 07/14/21 guaiFENesin [guaiFENesin Oral 10 mg PO Q4H 07/14/21 07/14/21 Solution] ondansetron HCL [Zofran] 8 mg PO Q6HR PRN 07/14/21 07/14/21 traZODone HCL [Desyrel] 50 - 150 mg PO HS 07/14/21 07/14/21 Allergies Allergy/AdvReac Type Severity Reaction Status Date / Time ibuprofen [From Motrin] Allergy Abdominal Verified 07/14/21 08:23 Pain Review of Systems ROS Statement: Those systems with pertinent positive or pertinent negative responses have been documented in the HPI. ROS Other: All systems not noted in ROS Statement are negative. Past Medical History Additional Past Medical History / Comment(s): Gastric ulcer with surgery to repair, chrnoic back pain History of Any Multi-Drug Resistant Organisms: None Reported Additional Past Surgical History / Comment(s): Surgery to repair gastric ulcer Past Anesthesia/Blood Transfusion Reactions: No Reported Reaction Past Psychological History: Anxiety, Depression Smoking Status: Current every day smoker - Past Family History Mother Family Medical History: Cancer Additional Family Medical History / Comment(s): Shing[place] Father Family Medical History: Hypertension General Exam - General Exam Comments Initial Comments: GENERAL: Patient is well-developed and well-nourished. Patient is nontoxic and well- hydrated and is in no acute distress. ENT: Neck is soft and supple. No significant lymphadenopathy is noted. Oropharynx is clear. Moist mucous membranes. Neck has full range of motion without eliciting any pain. EYES: The sclera were anicteric and conjunctiva were pink and moist. Extraocular movements were intact and pupils were equal round and reactive to light. Eyelid s were unremarkable. PULMONARY: Unlabored respirations. Good breath sounds bilaterally. No audible rales rhonchi or wheezing was noted. CARDIOVASCULAR: There is a regular rate and rhythm without any murmurs gallops or rubs. ABDOMEN: Soft and nontender with normal bowel sounds. SKIN: Skin is clear with no lesions or rashes and otherwise unremarkable. NEUROLOGIC: Patient is alert and oriented x3. Cranial nerves II through XII are grossly intact. Motor and sensory are also intact. Normal speech, volume and content. Symmetrical smile. MUSCULOSKELETAL: Normal extremities with adequate strength and full range of motion. LYMPHATICS: No significant lymphadenopathy is noted PSYCHIATRIC: Normal psychiatric evaluation. Course Vital Signs 11/24/22 11:17 Temperature 97.8 F Pulse Rate 64 Respiratory 18 Rate Blood Pressure 129/90 O2 Sat by Pulse 99 Oximetry Medical Decision Making - Medical Decision Making EKG was interpreted by myself. EKG shows sinus rhythm at 66 bpm [place] interval 230 QRS is 74 QT interval 384 QTC is 396. Patient's EKG shows early repolarization. Was pt. sent in by a medical professional or institution (, PA, SKIRT TRIMMER, urgent care, hospital, or half-way...) When possible be specific @ -[facility] sent the patient in Did you speak to anyone other than the patient for history (EMS, parent, family, police, friend...)? What history was obtained from this source @ -No Did you review nursing and triage notes (agree or disagree)? Why? @ -I reviewed and agree with nursing and triage notes Were old charts reviewed (outside hosp., previous admission, EMS record, old EKG, old radiological studies, urgent care reports/EKG's, half-way records)? Report findings @ -No old charts were reviewed Differential Diagnosis (chest pain, altered mental status, abdominal pain women, abdominal pain men, vaginal bleeding, weakness, fever, dyspnea, syncope, headache, dizziness, GI bleed, back pain, seizure, CVA, palpatations, mental health, musculoskeletal)? @ -Differential Chest Pain: Stable Angina, Unstable Angina, STEMI, NSTEMI Aortic Dissection, Pneumothorax, Musculoskeletal, Esophageal Spasm GERD, Cholecystitis, Pancreatitis, Zoster, this is not meant to be an all-inclusive list. EKG interpreted by me (3pts min.). @ -As above X-rays interpreted by me (1pt min.). @ -Chest x-ray shows no acute abnormality CT interpreted by me (1pt min.). @ -None done U/S interpreted by me (1pt. min.). @ -None done What testing was considered but not performed or refused? (CT, X-rays, U/S, labs)? Why? @ -None What meds were considered but not given or refused? Why? @ -None Did you discuss the management of the patient with other professionals (professionals i.e. , PA, SKIRT TRIMMER, lab, RT, psych nurse, high school social science teacher, landscaping and groundskeeping laborer, teacher, uniform patrol police officer, rn field case manager)? Give summary @ -I spoke with [facility] hospitalist and they agreed to admit the patient Was smoking cessation discussed for >3mins.? @ -No Was critical care preformed (if so, how long)? @ -No Were there social determinants of health that impacted care today? How? (Homelessness, low income, unemployed, alcoholism, drug addiction, transportation, low edu. Level, literacy, decrease access to med. care, [facility], rehab)? @ -No Was there de-escalation of care discussed even if they declined (Discuss DNR or withdrawal of care, Hospice)? DNR status @ -No What co-morbidities impacted this encounter? (DM, HTN, Smoking, COPD, CAD, Cancer, CVA, ARF, Chemo, Hep., AIDS, mental health diagnosis, sleep apnea, mo rbid obesity)? @ -None Was patient admitted / discharged? Hospital course, mention meds given and route, prescriptions, significant lab abnormalities, going to OR and other pertinent info. @ -I spoke with [facility] Hospitalist troponins patient was negative x- ray is negative and I will admit to them. I will consult cardiology. Undiagnosed new problem with uncertain prognosis? @ -No Drug Therapy requiring intensive monitoring for toxicity (Heparin, Nitro, Insulin, Cardizem)? @ -No Were any procedures done? @ -No Diagnosis/symptom? @ -Chest pain Acute, or Chronic, or Acute on Chronic? @ -Acute Uncomplicated (without systemic symptoms) or Complicated (systemic symptoms)? @ -Complicated Side effects of treatment? @ -No Exacerbation, Progression, or Severe Exacerbation? @ -No Poses a threat to life or bodily function? How? (Chest pain, [place], [place], pneumonia, PE, COPD, DKA, ARF, appy, cholecystitis, CVA, Diverticulitis, Homicidal, Suicidal, threat to staff... and all critical care pts) @ -Yes this could lead to [place] which could lead to poor perfusion and then organ dysfunction Diagnosis/symptom? @ -Cocaine abuse Acute, or Chronic, or Acute on Chronic? @ -Acute on chronic Uncomplicated (without systemic symptoms) or Complicated (systemic symptoms)? @ -Complicated Side effects of treatment? @ -none Exacerbation, Progression, or Severe Exacerbation] @ -no Poses a threat to life or bodily function? @ -no - Lab Data Result diagrams: 11/24/22 11:55 11/24/22 11:55 Lab Results 11/24/22 11/24/22 11/24/22 Range/Units 11:55 11:55 11:55 WBC 4.5 (3.8-10.6) k/uL RBC 5.26 (4.30-5.90) m/uL Hgb 14.6 (13.0-17.5) gm/dL Hct 44.3 (39.0-53.0) % MCV 84.2 (80.0-100.0) fL MCH 27.8 (25.0-35.0) pg MCHC 33.1 (31.0-37.0) g/dL RDW 14.5 (11.5-15.5) % Plt Count 180 (150-450) k/uL MPV 7.5 Neutrophils % 47 % Lymphocytes % 38 % Monocytes % 6 % Eosinophils % 8 % Basophils % 0 % Neutrophils # 2.1 (1.3-7.7) k/uL Lymphocytes # 1.7 (1.0-4.8) k/uL Monocytes # 0.3 (0-1.0) k/uL Eosinophils # 0.3 (0-0.7) k/uL Basophils # 0.0 (0-0.2) k/uL PT 10.4 (9.0-12.0) sec INR 1.0 (<1.2) APTT 24.4 (22.0-30.0) sec D-Dimer 0.41 (<0.60) mg/L FEU Sodium 138 (137-145) mmol/L Potassium 4.5 (3.5-5.1) mmol/L Chloride 106 (98-107) mmol/L Carbon Dioxide 28 (22-30) mmol/L Anion Gap 4 mmol/L BUN 11 (9-20) mg/dL Creatinine 1.07 (0.66-1.25) mg/dL Est GFR (CKD-EPI)AfAm 88 (>60 ml/min/1.73 sqM) Est GFR (CKD-EPI)NonAf 76 (>60 ml/min/1.73 sqM) Glucose 81 (74-99) mg/dL Calcium 8.5 (8.4-10.2) mg/dL Magnesium 2.3 (1.6-2.3) mg/dL Total Bilirubin 0.3 (0.2-1.3) mg/dL AST 19 (17-59) U/L ALT 16 (4-49) U/L Alkaline Phosphatase 64 (38-126) U/L Troponin I (0.000-0.034) ng/mL Total Protein 5.4 L (6.3-8.2) g/dL Albumin 3.1 L (3.5-5.0) g/dL Urine Opiates Screen (NotDetected) Ur Oxycodone Screen (NotDetected) Urine Methadone Screen (NotDetected) Ur Propoxyphene Screen (NotDetected) Ur Barbiturates Screen (NotDetected) U Tricyclic Antidepress (NotDetected) Ur Phencyclidine Scrn (NotDetected) Ur Amphetamines Screen (NotDetected) U Methamphetamines Scrn (NotDetected) U Benzodiazepines Scrn (NotDetected) Urine Cocaine Screen (NotDetected) U Marijuana (THC) Screen (NotDetected) 11/24/22 11/24/22 Range/Units 11:55 11:55 WBC (3.8-10.6) k/uL RBC (4.30-5.90) m/uL Hgb (13.0-17.5) gm/dL Hct (39.0-53.0) % MCV (80.0-100.0) fL MCH (25.0-35.0) pg MCHC (31.0-37.0) g/dL RDW (11.5-15.5) % Plt Count (150-450) k/uL MPV Neutrophils % % Lymphocytes % % Monocytes % % Eosinophils % % Basophils % % Neutrophils # (1.3-7.7) k/uL Lymphocytes # (1.0-4.8) k/uL Monocytes # (0-1.0) k/uL Eosinophils # (0-0.7) k/uL Basophils # (0-0.2) k/uL PT (9.0-12.0) sec INR (<1.2) APTT (22.0-30.0) sec D-Dimer (<0.60) mg/L FEU Sodium (137-145) mmol/L Potassium (3.5-5.1) mmol/L Chloride (98-107) mmol/L Carbon Dioxide (22-30) mmol/L Anion Gap mmol/L BUN (9-20) mg/dL Creatinine (0.66-1.25) mg/dL Est GFR (CKD-EPI)AfAm (>60 ml/min/1.73 sqM) Est GFR (CKD-EPI)NonAf (>60 ml/min/1.73 sqM) Glucose (74-99) mg/dL Calcium (8.4-10.2) mg/dL Magnesium (1.6-2.3) mg/dL Total Bilirubin (0.2-1.3) mg/dL AST (17-59) U/L ALT (4-49) U/L Alkaline Phosphatase (38-126) U/L Troponin I <0.012 (0.000-0.034) ng/mL Total Protein (6.3-8.2) g/dL Albumin (3.5-5.0) g/dL Urine Opiates Screen Not Detected (NotDetected) Ur Oxycodone Screen Not Detected (NotDetected) Urine Methadone Screen Not Detected (NotDetected) Ur Propoxyphene Screen Not Detected (NotDetected) Ur Barbiturates Screen Not Detected (NotDetected) U Tricyclic Antidepress Not Detected (NotDetected) Ur Phencyclidine Scrn Not Detected (NotDetected) Ur Amphetamines Screen Not Detected (NotDetected) U Methamphetamines Scrn Not Detected (NotDetected) U Benzodiazepines Scrn Not Detected (NotDetected) Urine Cocaine Screen Detected H (NotDetected) U Marijuana (THC) Screen Not Detected (NotDetected) Disposition Clinical Impression: Chest pain, Cocaine abuse Disposition: ADMITTED IP TO THIS HOSP Referrals: Nonstaff,Physician [Primary Care Provider] - 1-2 days Time of Disposition: 13:02
[2022-11-24 12:14] LABS: Basophils % (A) 0 %; Eosinophils # (A) 0.3 k/uL (0-0.7); Eosinophils % (A) 8 %; HCT 44.3 % (39.0-53.0); HGB 14.6 gm/dL (13.0-17.5); Lymphocytes # (A) 1.7 k/uL (1.0-4.8); Lymphocytes % (A) 38 %; MCH 27.8 pg (25.0-35.0); MCHC 33.1 g/dL (31.0-37.0); MCV 84.2 fL (80.0-100.0); Mean Platelet Volume 7.5; Monocytes # (A) 0.3 k/uL (0-1.0); Monocytes % (A) 6 %; Neutrophils # (A) 2.1 k/uL (1.3-7.7); Neutrophils % (A) 47 %; Platelet Count 180 k/uL (150-450); RBC 5.26 m/uL (4.30-5.90); RDW 14.5 % (11.5-15.5); WBC 4.5 k/uL (3.8-10.6)
[2022-11-24 12:30] LABS: Partial Thromboplastin Time 24.4 sec (22.0-30.0); Prothrombin Time 10.4 sec (9.0-12.0)
[2022-11-24 12:33] LABS: Amphetamine Screen,Urine Not Detected (NotDetected); Barbiturate Screen,Urine Not Detected (NotDetected); Benzodiazepines Screen,Urine Not Detected (NotDetected); Cocaine Screen,Urine Detected (NotDetected); Methadone Screen, Urine Not Detected (NotDetected); Opiate Screen,Urine Not Detected (NotDetected); Oxycodone Screen, Urine Not Detected (NotDetected); Phencyclidine Screen,Urine Not Detected (NotDetected); Tricyclic Antidepressant,Urine Not Detected (NotDetected); Urn Cannabinoid Scrn Not Detected (NotDetected)
[2022-11-24 12:34] LABS: ALT 16 U/L (4-49); AST 19 U/L (17-59); African American GFR (CKD) 88 (>60 ml/min/1.73 sqM); Albumin 3.1 g/dL (3.5-5.0); Alkaline Phosphatase 64 U/L (38-126); Anion Gap 4 mmol/L; Blood Urea Nitrogen 11 mg/dL (9-20); Calcium 8.5 mg/dL (8.4-10.2); Carbon Dioxide 28 mmol/L (22-30); Chloride 106 mmol/L (98-107); Glucose 81 mg/dL (74-99); Magnesium 2.3 mg/dL (1.6-2.3); Non-African American GFR(CKD) 76 (>60 ml/min/1.73 sqM); Potassium 4.5 mmol/L (3.5-5.1); Sodium 138 mmol/L (137-145); Total Bilirubin 0.3 mg/dL (0.2-1.3); Total Protein 5.4 g/dL (6.3-8.2)
--- NOTE | 2022-11-24 12:37 | XR ---
EXAMINATION TYPE: XR chest 2V DATE OF EXAM: 11/24/2022 COMPARISON: 07/14/2021 HISTORY: Shortness of breath TECHNIQUE: Frontal and lateral views of the chest are obtained. FINDINGS: Scattered senescent parenchymal changes noted. Hyperinflation compatible with COPD. No evidence for infiltrate. No evidence for atelectasis. Heart size is stable. Mediastinal structures are stable and grossly unremarkable. No evidence for hilar prominence. Degenerative changes dorsal spine. IMPRESSION: 1. No evidence for acute pulmonary disease.
[2022-11-24] MEDS ORDERED: ASPIRIN 325 MG TAB PO PRN (14:57)
[2022-11-24] MEDS: NITROGLYCERIN SL TABS 0.4 MG TAB SUBLINGUAL PRN (16:02)
[2022-11-24] MEDS: NITROGLYCERIN OINT 1 INCH/GM PACKET TOPICAL SCH ×2 (17:10→23:01)
[2022-11-24] MEDS: amLODIPine 5 MG TAB PO SCH (20:01)
[2022-11-25] MEDS: NITROGLYCERIN SL TABS 0.4 MG TAB SUBLINGUAL PRN (00:30)
[2022-11-25] MEDS ORDERED: VERAPAMIL 2.5 MG/ML 2 ML AMP ONE (01:44)
[2022-11-25] MEDS ORDERED: MORPHINE SULFATE 4 MG/ML SYRINGE ONE (01:49)
[2022-11-25] MEDS ORDERED: HEPARIN SODIUM 1,000 UN/ML (10ML VL) ONE (01:50)
[2022-11-25] MEDS ORDERED: LIDOCAINE 2% (PF) 20 MG/ML 5 ML VIAL SQ ONE (01:54)
[2022-11-25] MEDS ORDERED: MORPHINE SULFATE 4 MG/ML SYRINGE IVP ONE (01:55)
[2022-11-25] MEDS ORDERED: VERAPAMIL SYRINGE (5 MG/10 ML) INTRAARTER ONE (01:55)
[2022-11-25] MEDS ORDERED: MIDAZOLAM 2 MG/2 ML VIAL IVP ONE (01:55)
[2022-11-25] MEDS ORDERED: HEPARIN SODIUM 1,000 UN/ML (10ML VL) IV ONE (01:58)
[2022-11-25] MEDS ORDERED: SODIUM CHLORIDE 0.9% 500 ML 500 ML IV ONE (01:59)
[2022-11-25] MEDS ORDERED: RX INFO: IV CONTRAST WAS GIVEN 1 EACH MISC MISCELLANE PRN (02:07)
[2022-11-25] MEDS ORDERED: IOPAMIDOL-370 100ML BTL INJ ONE (02:10)
--- NOTE | 2022-11-25 02:10 | P.PCN ---
Date of Procedure: 11/25/22 Operative Findings: CARDIAC CATHETERIZATION PERFORMING PHYSICIAN: Gabriel Contreras MD, RPVI PROCEDURE PERFORMED: 1. Selective right and left coronary angiogram 2. Left heart catheterization 3. Ultrasound-guided access of the right radial artery INDICATION: Chest discomfort concerning for unstable angina. The patient is a 57-year-old gentleman with history of cocaine use recently resented to the hospital with a chest discomfort and continues to have ongoing chest discomfort. COMPLICATION: None APPROACH: Right radial artery LEVEL OF SEDATION: Moderate with a sedation length of 12 minutes PROCEDURE DESCRIPTION: After obtaining an informed consent, the patient was brought to cardiac construction or leak gang laborer. Local anesthesia was performed using lidocaine subcutaneously. The right radial artery was cannulated using Seldinger technique, the guidewire passed easily, following that we advanced a 5-Indonesian sheath dilator assembly, the wire and dilator were removed and sheath was flushed. Following that, 2 mg of verapamil along with 5000 unit heparin were given. Selective right and left coronary angiogram using a 6-Indonesian JR4 and JL 3.5 catheters. Following that we did left heart catheterization using 6-Indonesian pigtail catheter. The procedure was completed there was no complication. SELECTIVE CORONARY ANGIOGRAM: The right coronary artery: Large caliber vessel and a dominant vessel and appeared to be angiographically normal was FRANCHESKA 2 flow. Left main: Large caliber vessel. Its angiographically normal. The left circumflex: Large caliber vessel nondominant vessel. Its angiographically normal. Gives rises into OM1 and OM 2 and both appeared to be angiographically normal with FRANCHESKA 2 flow. The left anterior descending artery: Large caliber vessel. Its angiographically normal. Gives rises into the first and second diagonal and both appeared to be angiographically normal was FRANCHESKA 2 flow. HEMODYNAMICS: The LVEDP was 4 mmHg was no significant gradient across aortic valve CONCLUSION: 1. Normal coronary angiogram was FRANCHESKA 2 flow 2. Low left sided filling pressure POSTPROCEDURE MANAGEMENT: Medical treatment
--- NOTE | 2022-11-25 02:14 | P.CRDCN ---
History of Present Illness Consult date: 11/25/22 Chief complaint: Chest pain History of present illness: The patient is a 57-year-old gentleman with history of alcohol use and history of drug abuse presented to the hospital complaining of chest discomfort for the last 2 days. The patient was using cocaine with the last time he used cocaine this past Sunday. He was experiencing discomfort in the middle of the chest as is all kind of discomfort was no radiation to the arms or neck or shoulders or back andhit his symptoms of any shortness of breath or sweating or dizziness or lightheadedness or any feeling of heart racing or fluttering or presyncope or syncope. Further cardiac investigation was performed including a chest x-ray showed no acute abnormalities and troponin came in to be unremarkable and EKG showed sinus mechanism with biphasic T-wave in V1 and ST segment elevation in V2 and V3. The patient continues to have ongoing chest discomfort about 10 over 10 in intensity and in the light of that a heart catheterization was advised. The heart catheterization revealed no evidence of obstructive coronary artery disease but FRANCHESKA 2 flow across the coronary trees. The procedure was performed from the right radial approach and the patient tolerated the procedure very wel l. He continues to have ongoing chest discomfort but he states is improved. The patient will be transferred back to his room on . We'll continue to monitor the blood pressure and heart rate. Rule out any other etiology for the chest discomfort in the light of normal coronary angiogram. The examination is remarkable for stable vital signs with regular rhythm and soft systolic murmur and clear breathing sounds bilaterally and no lower extremity is edema noted Assessment Cocaine use Ongoing chest discomfort History of alcohol abuse History of smoking Plan Heart catheterization revealed no obstructive CAD was FRANCHESKA-3 flow in the coronary trees Rule out any other etiology for the chest discomfort. Continue monitor the heart rate and blood pressure Follow-up with the patient Past Medical History Additional Past Medical History / Comment(s): Gastric ulcer with surgery to repair, chrnoic back pain History of Any Multi-Drug Resistant Organisms: None Reported Additional Past Surgical History / Comment(s): Surgery to repair gastric ulcer Past Anesthesia/Blood Transfusion Reactions: No Reported Reaction Past Psychological History: Anxiety, Depression Additional Psychological History / Comment(s): Pt currently at [facility] for rehab. He is normally independent. Smoking Status: Current every day smoker Past Alcohol Use History: Occasional Additional Past Alcohol Use History / Comment(s): Pt started smoking in 1975 and is less than a ppd smoker. Past Drug Use History: Cocaine Additional Drug Use History / Comment(s): Pt is in rehab for crack cocaine addiction. He last used 07/10/21. - Past Family History Mother Family Medical History: Cancer Additional Family Medical History / Comment(s): Martina Father Family Medical History: Hypertension Medications and Allergies Home Medications Medication Instructions Recorded Confirmed Type Acetaminophen Tab [Tylenol] 650 mg PO Q4H PRN 07/14/21 11/24/22 History Aspirin EC [Ecotrin] 650 mg PO Q4H PRN 07/14/21 11/24/22 History Calc/Magnes/Zinc/Vitamin D 1 tab PO TID PRN 07/14/21 11/24/22 History Chlorpheniramine Maleate 4 mg PO Q4H PRN 07/14/21 11/24/22 History [Chlor-Trimeton] Loperamide HCl [Imodium A-D] 4 mg PO QID PRN 07/14/21 11/24/22 History Mag Hydrox/Aluminum Hyd/Simeth 30 ml PO Q4H PRN 07/14/21 11/24/22 History [Mylanta Maximum Strength Liq] Multivitamins, Thera [Multivitamin 1 tab PO DAILY 07/14/21 11/24/22 History (formulary)] Thiamine [Vitamin B-1] 100 mg PO DAILY 07/14/21 11/24/22 History ondansetron HCL [Zofran] 8 mg PO Q6HR PRN 07/14/21 11/24/22 History traZODone HCL [Desyrel] 50 - 150 mg PO HS PRN 07/14/21 11/24/22 History Allergies Allergy/AdvReac Type Severity Reaction Status Date / Time ibuprofen [From Motrin] Allergy Abdominal Verified 11/24/22 14:35 Pain Physical Exam Vitals: Vital Signs Temp Pulse Pulse Resp BP BP Pulse Ox 11/24/22 20:00 98.2 F 76 20 136/86 100 11/24/22 18:23 97.6 F 64 16 155/99 100 11/24/22 17:10 97.6 F 66 19 134/74 100 11/24/22 16:30 64 9 L 116/98 100 11/24/22 16:00 78 41 H 173/120 11/24/22 15:30 68 0 L 171/116 11/24/22 14:00 63 17 129/90 11/24/22 13:30 63 13 129/90 11/24/22 13:00 64 14 129/90 11/24/22 12:30 129/90 11/24/22 12:00 70 40 H 129/90 100 11/24/22 11:31 64 17 11/24/22 11:17 97.8 F 64 18 129/90 99 Intake and Output 11/24/22 11/24/22 11/25/22 14:59 22:59 06:59 Other: # Voids 1 Weight 74.389 kg 74.389 kg Results 11/24/22 11:55 11/24/22 11:55 Cardiac Enzymes 11/24/22 11/24/22 11/24/22 Range/Units 11:55 11:55 14:22 AST 19 (17-59) U/L Troponin I <0.012 <0.012 (0.000-0.034) ng/mL 11/24/22 Range/Units 17:29 AST (17-59) U/L Troponin I <0.012 (0.000-0.034) ng/mL Coagulation 11/24/22 Range/Units 11:55 PT 10.4 (9.0-12.0) sec APTT 24.4 (22.0-30.0) sec CBC 11/24/22 Range/Units 11:55 WBC 4.5 (3.8-10.6) k/uL RBC 5.26 (4.30-5.90) m/uL Hgb 14.6 (13.0-17.5) gm/dL Hct 44.3 (39.0-53.0) % Plt Count 180 (150-450) k/uL Comprehensive Metabolic Panel 11/24/22 Range/Units 11:55 Sodium 138 (137-145) mmol/L Potassium 4.5 (3.5-5.1) mmol/L Chloride 106 (98-107) mmol/L Carbon Dioxide 28 (22-30) mmol/L BUN 11 (9-20) mg/dL Creatinine 1.07 (0.66-1.25) mg/dL Glucose 81 (74-99) mg/dL Calcium 8.5 (8.4-10.2) mg/dL AST 19 (17-59) U/L ALT 16 (4-49) U/L Alkaline Phosphatase 64 (38-126) U/L Total Protein 5.4 L (6.3-8.2) g/dL Albumin 3.1 L (3.5-5.0) g/dL Current Medications Generic Name Dose Route Start Last Admin Trade Name Freq PRN Reason Stop Dose Admin Amlodipine Besylate 5 mg 11/24/22 19:15 11/24/22 20:01 Amlodipine 5 Mg Tab PO 5 mg DAILY [facility]EMIAS Administration Aspirin 325 mg 11/25/22 09:00 Aspirin 325 Mg Tab PO DAILY GEREMIAS Aspirin 650 mg 11/24/22 14:57 11/24/22 22:23 Aspirin 325 Mg Tab PO 650 mg Q4H PRN Administration Pain Nitroglycerin 0.4 mg 11/24/22 13:03 11/25/22 00:30 Nitroglycerin Sl Tabs 0.4 Mg Tab SUBLINGUAL 0.4 mg Q5M PRN Administration Chest Pain Nitroglycerin 1 inch 11/24/22 18:00 11/24/22 23:01 Nitroglycerin Oint 1 Inch/Gm Packet TOPICAL 1 inch Q6HR G[facility] Administration Thiamine HCl 100 mg 11/25/22 09:00 Thiamine 100 Mg Tab PO DAILY GEREMIAS Intake and Output 11/24/22 11/24/22 11/25/22 14:59 22:59 06:59 Other: # Voids 1 Weight 74.389 kg 74.389 kg Patient Weight 11/25/22 06:59 Weight 74.389 kg 11/24/22 11:55 11/24/22 11:55
[2022-11-25] MEDS ORDERED: SODIUM CHLORIDE 0.9% 1,000 ML IV SCH (02:15)
[2022-11-25] MEDS: NITROGLYCERIN OINT 1 INCH/GM PACKET TOPICAL SCH ×5 (05:18→23:19)
[2022-11-25] MEDS: amLODIPine 5 MG TAB PO SCH (08:10)
[2022-11-25] MEDS: THIAMINE 100 MG TAB PO SCH (08:11)
[2022-11-25] MEDS ORDERED: ASPIRIN 325 MG TAB PO SCH (09:00)
[2022-11-25 09:24] LABS: Basophils # (A) 0.01 X 10*3/uL (0.00-0.10); Basophils % (A) 0.2 %; Eosinophils # (A) 0.14 X 10*3/uL (0.04-0.35); Eosinophils % (A) 3.2 %; HCT 47.9 % (39.6-50.0); HGB 15.5 d/dL (13.0-17.0); Lymphocytes # (A) 1.12 X 10*3/uL (0.90-5.00); Lymphocytes % (A) 25.9 %; MCH 26.8 pg (27.0-32.0); MCHC 32.4 d/dL (32.0-37.0); MCV 82.7 FL (80.0-97.0); Mean Platelet Volume 10.1 FL (9.5-12.2); Monocytes # (A) 0.15 X 10*3/uL (0.20-1.00); Monocytes % (A) 3.5 %; NRBC Per 100 WBC 0 X 10*3/uL (0.00-0.01); Neutrophils # (A) 2.89 X 10*3/uL (1.80-7.70); Platelet Count 216 X 10*3/uL (140-440); RBC 5.79 X 10*6/uL (4.40-5.60); RDW 14.5 % (11.5-14.5); WBC 4.32 X 10*3/uL (4.50-10.00)
--- NOTE | 2022-11-25 09:26 | P.PN ---
Subjective Progress Note Date: 11/25/22 Principal diagnosis: Chest pain The patient is a 57-year-old gentleman with history of alcohol use and history of drug abuse presented to the hospital complaining of chest discomfort for the last 2 days. The patient was using cocaine with the last time he used cocaine this past Sunday. He was experiencing discomfort in the middle of the chest as is all kind of discomfort was no radiation to the arms or neck or shoulders or back andhit his symptoms of any shortness of breath or sweating or dizziness or lightheadedness or any feeling of heart racing or fluttering or presyncope or syncope. Further cardiac investigation was performed including a chest x-ray showed no acute abnormalities and troponin came in to be unremarkable and EKG showed sinus mechanism with biphasic T-wave in V1 and ST segment elevation in V2 and V3. The patient continues to have ongoing chest discomfort about 10 over 10 in intensity and in the light of that a heart catheterization was advised. The heart catheterization revealed no evidence of obstructive coronary artery disease but FRANCHESKA 2 flow across the coronary trees. The procedure was performed from the right radial approach and the patient tolerated the procedure very well. He continues to have ongoing chest discomfort but he states is improved. The patient will be transferred back to his room on . We'll continue to monitor the blood pressure and heart rate. Rule out any other etiology for the chest discomfort in the light of normal coronary angiogram. The examination is remarkable for stable vital signs with regular rhythm and soft systolic murmur and clear breathing sounds bilaterally and no lower extremity is edema noted November [id number] The patient was seen and evaluated this morning. He stated that his chest pain- free. The heart catheterization showed normal coronaries. From the cardiac vascular standpoint of view, I would continue the current medical regimen. No need for any further cardiac workup at this point. The examination is remarkable for stable vital signs with regular rhythm and clear breathing sounds bilaterally Assessment Cocaine use Ongoing chest discomfort History of alcohol abuse History of smoking Plan Heart catheterization revealed no obstructive CAD was FRANCHESKA-3 flow in the coronary trees Rule out any other etiology for the chest discomfort. Continue monitor the heart rate and blood pressure Follow-up with the patient Objective - Vital Signs Vital signs: Vital Signs Temp 97.9 F 11/25/22 07:00 Pulse 77 11/25/22 07:00 Resp 16 11/25/22 07:00 BP 131/86 11/25/22 07:00 Pulse Ox 100 11/25/22 07:00 FiO2 Intake & Output 11/24/22 11/25/22 11/25/22 18:59 06:59 18:59 Intake Total 500 Balance 500 Weight 74.389 kg Intake: IV 200 Intake, IV Titration 300 Amount Sodium Chloride 0.9% 1, 300 000 ml @ 75 mls/hr IV . [id number] [facility] Rx#:[id number] Other: # Voids 3 # Bowel Movements 1 - Labs CBC & Chem 7: 11/24/22 11:55 11/24/22 11:55 Labs: Abnormal Lab Results - Last 24 Hours (Table) 11/24/22 11/24/22 Range/Units 11:55 11:55 Total Protein 5.4 L (6.3-8.2) g/dL Albumin 3.1 L (3.5-5.0) g/dL Urine Cocaine Screen Detected H (NotDetected)
[2022-11-25 10:25] LABS: BUN/Creat Ratio 7.18 Ratio (12.00-20.00); Blood Urea Nitrogen 7.9 mg/dL (9.0-27.0); Calcium 8.8 mg/dL (8.7-10.3); Carbon Dioxide 27.9 mmol/L (21.6-31.8); Chloride 103 mmol/L (96-109); Chol/HDL Ratio 2.71 Ratio; Glucose 84 mg/dL (70-110); LDL Cholesterol,Calculated 68.6 mg/dL (0.0-131.0); Potassium 4.4 mmol/L (3.5-5.5); Sodium 138 mmol/L (135-145)
--- NOTE | 2022-11-25 11:15 | P.HPIM ---
History of Present Illness H&P Date: 11/24/22 Chief Complaint: Chest pain 57-year-old male who presents emergency Department stating that he's had chest pain for 2 days. Patient states started on Sunday he stated he did crack cocaine that day. Patient states the pain starts in his chest and radiates to his back. Patient denies any fever chills or cough. Patient states occasionally he has had some nausea. Patient denies shortness of breath or difficulty breathing. Patient denies any diaphoretic episodes. Patient has nausea vomiting. Patient denies any abdominal pain currently. Patient denies any vomiting but states she does have diarrhea occasionally. Patient states he also does fentanyl and he needed to be given Narcan any other day are also believes he would've . chest x-ray showed no acute abnormalities and troponin came in to be unremarkable and EKG showed sinus mechanism with biphasic T-wave in V1 and ST segment elevation in V2 and V3. Blood work completed in ED the bases WBC 4.5, hemoglobin 14.6 and platelet count of 180, sodium 138, potassium 4.5, BUN/creatinine of 11/1.07 and blood glucose of 81; troponin is less than 0.012 Urine drug screen completed in ED reveals cocaine Review of Systems REVIEW OF SYSTEMS: CONSTITUTIONAL: No fever, no malaise, no fatigue. HEENT: No recent visual problems or hearing problems. Denied any sore throat. CARDIOVASCULAR: No chest pain, orthopnea, PND, no palpitations, no syncope. PULMONARY: No shortness of breath, no cough, no hemoptysis. GASTROINTESTINAL: No diarrhea, no nausea, no vomiting, no abdominal pain. NEUROLOGICAL: No headaches, no weakness, no numbness. HEMATOLOGICAL: Denies any bleeding or petechiae. GENITOURINARY: Denies any burning micturition, frequency, or urgency. MUSCULOSKELETAL/RHEUMATOLOGICAL: Denies any joint pain, swelling, or any muscle pain. ENDOCRINE: Denies any polyuria or polydipsia. The rest of the 14-point review of systems is negative. Past Medical History Additional Past Medical History / Comment(s): Gastric ulcer with surgery to repair, chrnoic back pain History of Any Multi-Drug Resistant Organisms: None Reported Additional Past Surgical History / Comment(s): Surgery to repair gastric ulcer Past Anesthesia/Blood Transfusion Reactions: No Reported Reaction Past Psychological History: Anxiety, Depression Smoking Status: Current every day smoker - Past Family History Mother Family Medical History: Cancer Additional Family Medical History / Comment(s): Shingelles Father Family Medical History: Hypertension Medications and Allergies Home Medications Medication Instructions Recorded Confirmed Type Acetaminophen Tab [Tylenol] 650 mg PO Q4H PRN 07/14/21 11/24/22 History Aspirin EC [Ecotrin] 650 mg PO Q4H PRN 07/14/21 11/24/22 History Calc/Magnes/Zinc/Vitamin D 1 tab PO TID PRN 07/14/21 11/24/22 History Chlorpheniramine Maleate 4 mg PO Q4H PRN 07/14/21 11/24/22 History [Chlor-Trimeton] Loperamide HCl [Imodium A-D] 4 mg PO QID PRN 07/14/21 11/24/22 History Mag Hydrox/Aluminum Hyd/Simeth 30 ml PO Q4H PRN 07/14/21 11/24/22 History [Mylanta Maximum Strength Liq] Multivitamins, Thera [Multivitamin 1 tab PO DAILY 07/14/21 11/24/22 History (formulary)] Thiamine [Vitamin B-1] 100 mg PO DAILY 07/14/21 11/24/22 History ondansetron HCL [Zofran] 8 mg PO Q6HR PRN 07/14/21 11/24/22 History traZODone HCL [Desyrel] 50 - 150 mg PO HS PRN 07/14/21 11/24/22 History Allergies Allergy/AdvReac Type Severity Reaction Status Date / Time ibuprofen [From Motrin] Allergy Abdominal Verified 11/24/22 14:35 Pain Physical Exam Vitals: Vital Signs Temp Pulse Resp BP Pulse Ox 11/24/22 11:17 97.8 F 64 18 129/90 99 Intake and Output 11/23/22 11/24/22 11/24/22 22:59 06:59 14:59 Other: Weight 74.389 kg GENERAL: Patient is well-developed and well-nourished. Patient is nontoxic and well- hydrated and is in no acute distress. ENT: Neck is soft and supple. No significant lymphadenopathy is noted. Oropharynx is clear. Moist mucous membranes. Neck has full range of motion without eliciting any pain. EYES: The sclera were anicteric and conjunctiva were pink and moist. Extraocular movements were intact and pupils were equal round and reactive to light. Eyelids were unremarkable. PULMONARY: Unlabored respirations. Good breath sounds bilaterally. No audible rales rhonchi or wheezing was noted. CARDIOVASCULAR: There is a regular rate and rhythm without any murmurs gallops or rubs. ABDOMEN: Soft and nontender with normal bowel sounds. SKIN: Skin is clear with no lesions or rashes and otherwise unremarkable. NEUROLOGIC: Patient is alert and oriented x3. Cranial nerves II through XII are grossly intact. Motor and sensory are also intact. Normal speech, volume and content. Symmetrical smile. MUSCULOSKELETAL: Normal extremities with adequate strength and full range of motion. LYMPHATICS: No significant lymphadenopathy is noted PSYCHIATRIC: Normal psychiatric evaluation. Results CBC & Chem 7: 11/25/22 05:51 11/25/22 05:51 Labs: Abnormal Lab Results - Last 24 Hours (Table) 11/24/22 11/24/22 Range/Units 11:55 11:55 Total Protein 5.4 L (6.3-8.2) g/dL Albumin 3.1 L (3.5-5.0) g/dL Urine Cocaine Screen Detected H (NotDetected) Assessment and Plan Assessment: 1. Chest pain/unstable angina; patient is admitted to telemetry; monitor EKG and trend troponin; cardiology is consulted 2. Cocaine abuse; counseling done on need to quit substance abuse; continue with supportive care 3. Chronic back pain; supportive care 4. Uncontrolled hypertension; likely related to substance abuse; we will use hydralazine when necessary; we will add antihypertensive therapy. Blood pressure remains elevated 5. Anxiety/depression; trazodone 150 mg by mouth daily at bedtime DVT prophylaxis; SCDs CODE STATUS full code;
[2022-11-25] MEDS ORDERED: PANTOPRAZOLE 40 MG/10 ML VIAL IVP SCH (11:30)
[2022-11-25] MEDS: PANTOPRAZOLE 40 MG TABLET PO SCH (16:31)
--- NOTE | 2022-11-25 18:34 | P.PN ---
Subjective Progress Note Date: 11/25/22 57-year-old male who presents emergency Department stating that he's had chest pain for 2 days. Patient states started on Sunday he stated he did crack cocaine that day. Patient states the pain starts in his chest and radiates to his back. Patient denies any fever chills or cough. Patient states oc casionally he has had some nausea. Patient denies shortness of breath or difficulty breathing. Patient denies any diaphoretic episodes. Patient has nausea vomiting. Patient denies any abdominal pain currently. Patient denies any vomiting but states she does have diarrhea occasionally. Patient states he also does fentanyl and he needed to be given Narcan any other day are also believes he would've . chest x-ray showed no acute abnormalities and troponin came in to be unremarkable and EKG showed sinus mechanism with biphasic T-wave in V1 and ST segment elevation in V2 and V3. Blood work completed in ED the bases WBC 4.5, hemoglobin 14.6 and platelet count of 180, sodium 138, potassium 4.5, BUN/creatinine of 11/1.07 and blood glucose of 81; troponin is less than 0.012 Urine drug screen completed in ED reveals cocaine -- Continues to report chest pain; status post cardiac catheterization which was negative; cardiology recommending to continue workup for etiology of chest pain; d-dimer was unremarkable; CT of the chest is ordered with and without contrast - Patient has been placed on Protonix 40 mg by mouth twice a day Objective - Vital Signs Vital signs: Vital Signs Temp 97.9 F 11/25/22 07:00 Pulse 77 11/25/22 07:00 Resp 16 11/25/22 07:00 BP 131/86 11/25/22 07:00 Pulse Ox 100 11/25/22 07:00 FiO2 Intake & Output 11/24/22 11/25/22 11/25/22 18:59 06:59 18:59 Intake Total 500 118 Balance 500 118 Weight 74.389 kg Intake: IV 200 Intake, IV Titration 300 Amount Sodium Chloride 0.9% 1, 300 000 ml @ 75 mls/hr IV . [id number] [facility] Rx#:[id number] Oral 118 Other: # Voids 3 # Bowel Movements 1 - Exam Patient is well-developed and well-nourished. Patient is nontoxic and well- hydrated and is in no acute distress. ENT: Neck is soft and supple. No significant lymphadenopathy is noted. Oropharynx is clear. Moist mucous membranes. Neck has full range of motion without eliciting any pain. EYES: The sclera were anicteric and conjunctiva were pink and moist. Extraocular movements were intact and pupils were equal round and reactive to light. Eyelids were unremarkable. PULMONARY: Unlabored respirations. Good breath sounds bilaterally. No audible rales rhonchi or wheezing was noted. CARDIOVASCULAR: There is a regular rate and rhythm without any murmurs gallops or rubs. ABDOMEN: Soft and nontender with normal bowel sounds. SKIN: Skin is clear with no lesions or rashes and otherwise unremarkable. NEUROLOGIC: Patient is alert and oriented x3. Cranial nerves II through XII are grossly intact. Motor and sensory are also intact. Normal speech, volume and content. Symmetrical smile. MUSCULOSKELETAL: Normal extremities with adequate strength and full range of motion. LYMPHATICS: No significant lymphadenopathy is noted PSYCHIATRIC: Normal psychiatric evaluation. - Labs CBC & Chem 7: 11/25/22 05:51 11/25/22 05:51 Labs: Abnormal Lab Results - Last 24 Hours (Table) 11/24/22 11/24/22 11/25/22 Range/Units 11:55 11:55 05:51 WBC (4.50-10.00) X 10*3/uL RBC (4.40-5.60) X 10*6/uL MCH (27.0-32.0) pg Monocytes # (0.20-1.00) X 10*3/uL BUN 7.9 L (9.0-27.0) mg/dL BUN/Creatinine Ratio 7.18 L (12.00-20.00) Ratio Total Protein 5.4 L (6.3-8.2) g/dL Albumin 3.1 L (3.5-5.0) g/dL Urine Cocaine Screen Detected H (NotDetected) 11/25/22 Range/Units 05:51 WBC 4.32 L (4.50-10.00) X 10*3/uL RBC 5.79 H (4.40-5.60) X 10*6/uL MCH 26.8 L (27.0-32.0) pg Monocytes # 0.15 L (0.20-1.00) X 10*3/uL BUN (9.0-27.0) mg/dL BUN/Creatinine Ratio (12.00-20.00) Ratio Total Protein (6.3-8.2) g/dL Albumin (3.5-5.0) g/dL Urine Cocaine Screen (NotDetected) Assessment and Plan Assessment: 1. Chest pain/unstable angina; patient is admitted to telemetry; monitor EKG and trend troponin; cardiology is consulted 2. Cocaine abuse; counseling done on need to quit substance abuse; continue with supportive care 3. Chronic back pain; supportive care 4. Uncontrolled hypertension; likely related to substance abuse; we will use hydralazine when necessary; we will add antihypertensive therapy. Blood pressure remains elevated 5. Anxiety/depression; trazodone 150 mg by mouth daily at bedtime DVT prophylaxis; SCDs CODE STATUS full code;
[2022-11-26 03:01] VITALS: RESP 16
[2022-11-26] MEDS: NITROGLYCERIN OINT 1 INCH/GM PACKET TOPICAL SCH ×2 (05:48→11:30)
[2022-11-26] MEDS: PANTOPRAZOLE 40 MG TABLET PO SCH (05:57)
[2022-11-26] MEDS: THIAMINE 100 MG TAB PO SCH (07:46)
[2022-11-26] MEDS: amLODIPine 5 MG TAB PO SCH (07:46)
[2022-11-26 07:54] VITALS: BP 115/78; PULSE 66; TEMP 98.1
--- NOTE | 2022-11-26 09:26 | CT ---
EXAMINATION TYPE: CT chest wo/w con CT DLP: 444.6 mGycm, Automated exposure control for dose reduction was used. DATE OF EXAM: 11/26/2022 9:15 AM COMPARISON: Chest radiograph 11/24/2022 CLINICAL INDICATION:Male, 57 years old with history of chest pain; PHH, chest pain, recent heart cath eter yesterday TECHNIQUE: Multiple axial images were obtained through the chest before and after the uneventful admi nistration of 100 cc of Isovue-300 intravenously . Coronal and sagittal reformats reviewed. FINDINGS: LUNGS/ PLEURA: No pleural effusion, pneumothorax, focal consolidation. Mild paraseptal emphysematous changes in the upper lobes. No suspicious pulmonary nodule or mass. AIRWAY: Patent and unremarkable.. HEART: Size within normal limits. No pericardial effusion. MEDIASTINUM: No gross evidence of adenopathy. VASCULATURE: No aortic aneurysm. No evidence for intramural hematoma or dissection. No pulmonary emb olus identified. Reflux of contrast into the IVC. MUSCULOSKELETAL: No acute osseous abnormalities SOFT TISSUES/LYMPH NODES: Minimal bilateral gynecomastia. LOWER NECK: No significant findings. UPPER ABDOMEN: No significant findings. IMPRESSION: No acute thoracic process.
--- NOTE | 2022-11-26 11:30 | P.PN ---
Subjective Progress Note Date: 11/26/22 Principal diagnosis: Chest pain The patient is a 57-year-old gentleman with history of alcohol use and history of drug abuse presented to the hospital complaining of chest discomfort for the last 2 days. The patient was using cocaine with the last time he used cocaine this past Sunday. He was experiencing discomfort in the middle of the chest as is all kind of discomfort was no radiation to the arms or neck or shoulders or back andhit his symptoms of any shortness of breath or sweating or dizziness or lightheadedness or any feeling of heart racing or fluttering or presyncope or syncope. Further cardiac investigation was performed including a chest x-ray showed no acute abnormalities and troponin came in to be unremarkable and EKG showed sinus mechanism with biphasic T-wave in V1 and ST segment elevation in V2 and V3. The patient continues to have ongoing chest discomfort about 10 over 10 in intensity and in the light of that a heart catheterization was advised. The heart catheterization revealed no evidence of obstructive coronary artery disease but FRANCHESKA 2 flow across the coronary trees. The procedure was performed from the right radial approach and the patient tolerated the procedure very well. He continues to have ongoing chest discomfort but he states is improved. The patient will be transferred back to his room on . We'll continue to monitor the blood pressure and heart rate. Rule out any other etiology for the chest discomfort in the light of normal coronary angiogram. The examination is remarkable for stable vital signs with regular rhythm and soft systolic murmur and clear breathing sounds bilaterally and no lower extremity is edema noted November [id number] The patient was seen and evaluated this morning. He stated that his chest pain- free. The heart catheterization showed normal coronaries. From the cardiac vascular standpoint of view, I would continue the current medical regimen. No need for any further cardiac workup at this point. The examination is remarkable for stable vital signs with regular rhythm and clear breathing sounds bilaterally 11/26/2022 The patient was seen and evaluated this morning. He underwent yesterday a computed tomography scan of the chest and that showed no acute abnormalities. T he heart catheterization showed normal coronaries. He remained stable from a cardiovascular standpoint of view. The examination is remarkable for stable vital signs with regular rhythm and clear breathing sounds bilaterally. Assessment Cocaine use Ongoing chest discomfort History of alcohol abuse History of smoking Plan Heart catheterization revealed no obstructive CAD was FRANCHESKA-3 flow in the c oronary trees CTA of the chest showed no acute abnormalities as well The patient potentially can be discharged from Follow-up with the patient on when necessary case Objective - Vital Signs Vital signs: Vital Signs Temp 98.1 F 11/26/22 07:00 Pulse 66 11/26/22 07:00 Resp 16 11/26/22 07:00 BP 115/78 11/26/22 07:00 Pulse Ox 100 11/26/22 09:05 FiO2 Intake & Output 11/25/22 11/26/22 11/26/22 18:59 06:59 18:59 Intake Total 709 Balance 709 Intake: Oral 709 Other: # Voids 1 2 - Labs CBC & Chem 7: 11/25/22 05:51 11/25/22 05:51
== END 2022-11-26 15:45 | disposition home or self-care (01) ==
LOC: EC 11:14 → 6NMEDSUR 13:06
PROVIDERS: ADMIT Hospitalist; ATTEND Hospitalist
DX: R07.89 Other chest pain (principal); F14.20 Cocaine dependence, uncomplicated; I10 Essential (primary) hypertension; F10.10 Alcohol abuse, uncomplicated; F11.10 Opioid abuse, uncomplicated; F32.A Depression, unspecified; F41.9 Anxiety disorder, unspecified; G89.29 Other chronic pain; M54.9 Dorsalgia, unspecified; F17.210 Nicotine dependence, cigarettes, uncomplicated; Z71.51 Drug abuse counseling and surveillance of drug abuser; R11.2 Nausea with vomiting, unspecified; R19.7 Diarrhea, unspecified; Z79.82 Long term (current) use of aspirin; Z79.899 Other long term (current) drug therapy; Z88.6 Allergy status to analgesic agent; Z98.890 Other specified postprocedural states; Z82.49 Family history of ischemic heart disease and other diseases of the circulatory system; Z80.9 Family history of malignant neoplasm, unspecified
CPT/HCPCS: 99285; 36415; 94760; 93005; 93458; 76937; 85379 ×2; 80061; 80053; 80048; 83735; 84484; 85025 ×2; 85610; 85730; 80306; 71046; 71270; G0378 ×3; C1769; C1894; J2250; J2270; J1644; Q9967 ×2; J2001